=== PATIENT | female | born 1995 ===

== ENCOUNTER 2020-01-29 17:27 | Outpatient (REF) | payer BC, SELFPAY ==
[2020-02-04 00:51] LABS: SARS-CoV-2 RNA Undetected (Undetected); SARS-CoV-2 Specimen Source Nasal
== END 2020-01-29 17:47 ==
LOC: NCHCN 17:27
PROVIDERS: PCP Physician Assistant; Visit Provider Nurse Practitioner Family
DX: Z20.828 Contact with and (suspected) exposure to other viral communicable diseases (principal)
CPT/HCPCS: U0003

== ENCOUNTER 2021-04-25 16:11 | Outpatient (REF) | payer BC, SELFPAY ==
[2021-04-27 15:25] LABS: Chlamydia Result Negative (Negative); GC Result Negative (Negative)
== END 2021-04-25 16:12 | disposition home or self-care (01) ==
LOC: NCHCN 16:11
PROVIDERS: PCP Physician Assistant; Visit Provider Nurse Practitioner Family
DX: Z11.3 Encounter for screening for infections with a predominantly sexual mode of transmission (principal); N76.89 Other specified inflammation of vagina and vulva
CPT/HCPCS: 87491; 87591; 87480; 87510; 87660

== ENCOUNTER 2021-09-22 13:28 | Outpatient (REF) | payer SELFPAY ==
[2021-09-24 13:40] LABS: Chlamydia Result Negative (Negative); GC Result Negative (Negative)
== END 2021-09-22 13:29 | disposition home or self-care (01) ==
LOC: NCHCN 13:28
PROVIDERS: PCP Physician Assistant; Visit Provider Nurse Practitioner Family
DX: R30.0 Dysuria (principal); Z11.3 Encounter for screening for infections with a predominantly sexual mode of transmission
CPT/HCPCS: 87491; 87591